=== PATIENT | female | born 1995 | race Two or more races ===

== ENCOUNTER 2021-09-10 22:02 | Emergency (ER) | payer OTHER ==
[~2021-09-10] VITALS: Ht 157.5 cm; Wt 58.1 kg
[2021-09-10 22:19] VITALS: BP 106/74
--- NOTE | 2021-09-10 22:24 | NUR ---
PT TAKEN TO BED 11.
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
--- NOTE | 2021-09-10 22:44 | NUR ---
ERMD AT BEDSIDE ASSESSING PT.
[2021-09-11 00:20] VITALS: BP 106/74
--- NOTE | 2021-09-11 00:20 | NUR ---
Patient discharged with v/s stable. Written and verbal after care instructions given and explained. Patient verbalized understanding. Ambulatory with steady gait. All questions addressed prior to discharge. Advised to follow up with PMD.
== END 2021-09-11 00:20 | disposition home or self-care (01) ==
LOC: MED 22:02
DX: M54.2 Cervicalgia (principal); M54.50 Low back pain, unspecified; V49.9XXA Car occupant (driver) (passenger) injured in unspecified traffic accident, initial encounter; Y93.89 Activity, other specified; Y92.410 Unspecified street and highway as the place of occurrence of the external cause; Y99.8 Other external cause status
CPT/HCPCS: 72050; 72110; 81025; 99284